=== PATIENT | male | born 1950 | race Caucasian/White ===

== ENCOUNTER 2025-01-26 06:40 | Day surgery (SDC) | payer MEDICARE ==
[2025-01-26] MEDS ORDERED: Propofol 200 MG/20 ML SDV IV ONE (06:41)
[2025-01-26] MEDS ORDERED: Sodium Chloride 0.9% 10 ML Syringe FLUSH PRN (06:45)
[2025-01-26] MEDS: Lactated Ringers 1,000 ML IV SCH (07:26)
== END 2025-01-26 09:15 | disposition home or self-care (01) ==
LOC: FB.SDS 06:40
PROVIDERS: ATTEND Surgery
DX: Z12.11 Encounter for screening for malignant neoplasm of colon (principal); K63.89 Other specified diseases of intestine; F79 Unspecified intellectual disabilities; K40.90 Unilateral inguinal hernia, without obstruction or gangrene, not specified as recurrent; Z88.8 Allergy status to other drugs, medicaments and biological substances; Z79.01 Long term (current) use of anticoagulants; Z79.899 Other long term (current) drug therapy
CPT/HCPCS: 00811; 99100; A9270; G0121; J2704; J7120

== ENCOUNTER 2025-03-13 09:06 | Day surgery (SDC) | payer MEDICARE ==
[2025-03-13] MEDS ORDERED: fentaNYL 100 MCG/2 ML SDV IV ONE (09:07)
[2025-03-13] MEDS ORDERED: Midazolam 1 MG/ML 2 ML SDV IV ONE (09:07)
[2025-03-13] MEDS ORDERED: Sodium Chloride 0.9% 10 ML Syringe FLUSH PRN (09:30)
[2025-03-13] MEDS ORDERED: Lactated Ringers 1,000 ML IV PRN (09:30)
[2025-03-13] MEDS: acetaZOLAMIDE 500 MG Cap.ER PO ONE (10:52)
== END 2025-03-13 11:07 ==
LOC: FB.SDS 09:06
PROVIDERS: ATTEND Ophthalmology
DX: H26.9 Unspecified cataract (principal); F41.9 Anxiety disorder, unspecified; G47.33 Obstructive sleep apnea (adult) (pediatric); Z79.899 Other long term (current) drug therapy
CPT/HCPCS: 00142; 99100; A9270-GY; J2250; J3010; V2632

== ENCOUNTER 2025-03-27 09:27 | Day surgery (SDC) | payer MEDICARE ==
[2025-03-27] MEDS ORDERED: fentaNYL 100 MCG/2 ML SDV IV ONE (09:28)
[2025-03-27] MEDS ORDERED: Midazolam 1 MG/ML 2 ML SDV IV ONE (09:28)
[2025-03-27] MEDS ORDERED: Sodium Chloride 0.9% 10 ML Syringe FLUSH PRN (09:30)
[2025-03-27] MEDS: Lactated Ringers 1,000 ML IV SCH (10:08)
[2025-03-27] MEDS: acetaZOLAMIDE 500 MG Cap.ER PO ONE (11:46)
== END 2025-03-27 12:00 | disposition home or self-care (01) ==
LOC: FB.SDS 09:27
PROVIDERS: ATTEND Ophthalmology
DX: H26.9 Unspecified cataract (principal); Z88.8 Allergy status to other drugs, medicaments and biological substances; Z79.01 Long term (current) use of anticoagulants; Z79.899 Other long term (current) drug therapy
CPT/HCPCS: 00142; 66984; 99100; A9270; J2250; J3010; J7120; V2632